=== PATIENT | female | born 2000 | race Caucasian/White ===

== ENCOUNTER → 2024-12-02 14:49 | Outpatient (BNVA) | payer OTHER, MEDICAID, SELFPAY | PROVIDERS: PCP Nurse Practitioner Adult Health; Visit Provider Internal Medicine | DX: R07.9 Chest pain, unspecified (principal); R00.2 Palpitations; R00.0 Tachycardia, unspecified; Z82.49 Family history of ischemic heart disease and other diseases of the circulatory system; F17.290 Nicotine dependence, other tobacco product, uncomplicated; I49.8 Other specified cardiac arrhythmias | CPT/HCPCS: 93005 ==